=== PATIENT | female | born 1940 | race Caucasian/White ===

== ENCOUNTER 2016-10-25 13:50 | Inpatient (IN) | payer OTHER, MEDICARE ==
[2016-10-25] MEDS ORDERED: HYDROmorphONE/DILAUDID 1 MG/ML SYR IVP ONE ×2 (14:15→17:27)
--- NOTE | 2016-10-25 14:17 | EDPHY ---
H & P Source: Patient Exam Limitations: No limitations - Medical/Surgical History Hx Asthma: No Hx Chronic Respiratory Disease: No Hx Diabetes: No Hx Cardiac Disease: No Hx Renal Disease: No Hx Cirrhosis: No Hx Alcoholism: No - Family History Significant Family History: No pertinent family hx - Social History Alcohol Use: Sober Drug Use: None Time Seen by Provider: 10/25/16 14:10 HPI/ROS: CHIEF COMPLAINT: Right knee pain HISTORY OF PRESENT ILLNESS: The patient is a 76-year-old female who comes to the emergency department by ambulance complaining of right knee pain. She tripped and fell into a kneeling position onto her right knee. She had immediate pain and states that she cannot extend her knee. She had this knee replaced in July of this year and [place]. She denies other injuries. REVIEW OF SYSTEMS: Constitutional: denies: chills, fever, recent illness, recent injury EENTM: denies: blurred vision, double vision, nose congestion Respiratory: denies: cough, shortness of breath Cardiac: denies: chest pain, irregular heart rate, lightheadedness, palpitations Gastrointestinal/Abdominal: denies: abdominal pain, diarrhea, nausea, vomiting, blood streaked stools Genitourinary: denies: dysuria, frequency, hematuria, pain Musculoskeletal: See HPI Skin: denies: lesions, rash, jaundice, bruising Neurological: denies: headache, numbness, paresthesia, tingling, dizziness, weakness Hematologic/Lymphatic: denies: blood clots, easy bleeding, easy bruising Immunologic/allergic: denies: HIV/AIDS, transplant EXAM: GENERAL: Well-appearing, well-nourished and in no acute distress. HEAD: Atraumatic, normocephalic. EYES: Pupils equal round and reactive to light, extraocular movements intact, sclera anicteric, conjunctiva are normal. ENT: TMs normal, nares patent, oropharynx clear without exudates. Moist mucous membranes. NECK: Normal range of motion, supple without lymphadenopathy or JVD. LUNGS: Breath sounds clear to auscultation bilaterally and equal. No wheezes rales or rhonchi. HEART: Regular rate and rhythm without murmurs, rubs or gallops. ABDOMEN: Soft, nontender, normoactive bowel sounds. No guarding, no rebound. No masses appreciated. BACK: No CVA tenderness, no spinal tenderness, step-offs or deformities EXTREMITIES: Right knee pain and swelling, mild crepitus to palpation. We cannot extend knee due to pain. Normal pulses and sensation distally. NEUROLOGICAL: Cranial nerves II through XII grossly intact. Normal speech, normal sensation PSYCH: Normal mood, normal affect. SKIN: Warm, dry, normal turgor, no visible rashes or lesions. (Casey Reyna) Constitutional: Initial Vital Signs Temperature (C) 36.4 C 10/25/16 14:26 Heart Rate 72 10/25/16 14:26 Respiratory Rate 16 10/25/16 14:26 Blood Pressure 156/83 H 10/25/16 14:26 O2 Sat (%) 95 10/25/16 14:26 O2 Delivery Mode Nasal Cannula O2 (L/minute) 2 Allergies/Adverse Reactions: No Known Allergies Allergy (Unverified 10/25/16 14:21) Home Medications: Medication Instructions Recorded Aspirin EC [Aspirin EC 81 mg (*)] 81 mg PO DAILY 10/25/16 Atorvastatin Calcium [Lipitor 10 5 mg PO DAILY 10/25/16 mg (*)] Diclofenac Sodium [Voltaren 75 MG 75 mg PO BID 10/25/16 (*)] Estrogens,Conjugated [Premarin 1 lay VG MOTH@09 10/25/16 Vaginal (*)] Herbals/Supplements -Info Only 1 ea PO DAILY 10/25/16 Pregabalin [Lyrica 50mg (*)] 50 mg PO BID 10/25/16 traMADol [Ultram 50 mg (*)] 50 - 100 mg PO Q6 PRN 10/25/16 Medical Decision Making - Diagnostics Imaging Results: X-ray: Right knee x-ray was obtained. I viewed the images myself on the PACS system. My interpretation of the images is: Distal femur fracture. The radiologist interpretation is pending. (Casey Reyna) ED Course/Re-evaluation: 1600: Dr. So came and evaluated the patient. Stated the OR cannot take the patient until 8:00 p.m.. He recommended that I consult the hospitalist service. I discussed the case with hospitalist, Dr. Jordan, who came to the ED. (Phyllis Hernandez) 3:10 p.m. I discussed the case with Dr. Wes So who will come to evaluate the patient in the ER likely take her to the operating room. (Casey Reyna) Differential Diagnosis: Partial list of the Differential diagnosis considered include but were not limited to; femur fracture, patella fracture and although unlikely based on the history and physical exam, I also considered dislocation, vascular injury, nerve injury. (Casey Reyna) - Data Points Laboratory Results: Laboratory Results 10/25/16 13:55 10/25/16 13:55 Medications Given: Acetaminophen (Tylenol) 650 mg PO Q4HRS PRN PRN Reason: Pain, Mild/Fever, Can Take PO Stop: 04/23/17 16:38 Last Admin: 10/26/16 16:15 Dose: 650 mg Atorvastatin Calcium (Lipitor) 5 mg PO DAILY CY Stop: 04/24/17 08:59 Last Admin: 10/26/16 09:36 Dose: 5 mg Sodium Chloride (Ns) 1,000 mls @ 100 mls/hr IV CONT CY Stop: 04/23/17 16:44 Last Admin: 10/26/16 10:55 Dose: 1,000 mls Ketorolac Tromethamine (Toradol) 15 - 30 mg IVP Q6HRS PRN PRN Reason: Pain, Inflammatory Stop: 10/30/16 19:39 Last Admin: 10/25/16 22:34 Dose: 30 mg Lidocaine/Prilocaine (Emla Cream) 1 lay TP PRN PRN PRN Reason: IV START Stop: 04/24/17 11:19 Last Admin: 10/26/16 14:59 Dose: 1 lay Methocarbamol (Robaxin) 750 mg PO TID CY Stop: 04/24/17 15:59 Last Admin: 10/26/16 15:06 Dose: 750 mg Oxycodone HCl (Oxycodone Ir) 5 - 10 mg PO Q4HRS PRN PRN Reason: Pain, Severe Able to Take PO Stop: 11/04/16 19:39 Last Admin: 10/26/16 16:15 Dose: 5 mg Pregabalin (Lyrica) 50 mg PO BID CY Stop: 04/24/17 08:59 Last Admin: 10/26/16 09:36 Dose: 50 mg Rivaroxaban (Xarelto) 10 mg PO DAILY CY Stop: 04/24/17 08:59 Last Admin: 10/26/16 09:36 Dose: 10 mg Tramadol HCl (Ultram) 50 - 100 mg PO Q6 PRN PRN Reason: Pain, Moderate Able to Take PO Stop: 04/24/17 07:59 Last Admin: 10/26/16 09:36 Dose: 50 mg Discontinued Medications Bacitracin (Bacitracin Syringe) Confirm Administered Dose 50,000 units IRR .STK- MED ONE Stop: 10/25/16 16:47 Last Admin: 10/25/16 22:18 Dose: Not Given Bupivacaine HCl/Epinephrine Bitart (Bupivacaine/Epi) Confirm Administered Dose 30 ml .ROUTE .STK-MED ONE Stop: 10/25/16 16:46 Last Admin: 10/25/16 22:18 Dose: Not Given Fentanyl (Sublimaze) 50 - 100 mcg IVP Q5M PRN PRN Reason: PACU, Immediate Severe Pain Stop: 10/25/16 20:37 Last Admin: 10/25/16 21:29 Dose: 25 mcg Hydromorphone HCl (Dilaudid) 1 mg IVP EDNOW ONE Stop: 10/25/16 14:16 Last Admin: 10/25/16 14:43 Dose: 1 mg Hydromorphone HCl (Dilaudid) 0.5 mg IVP ONCE ONE Stop: 10/25/16 17:28 Last Admin: 10/25/16 17:38 Dose: 0.5 mg Cefazolin Sodium/Dextrose (Ancef 2 Gm (Premix)) 100 mls @ 200 mls/hr IV ONCALL ONE PRN Reason: Protocol Stop: 10/25/16 17:19 Last Admin: 10/25/16 22:19 Dose: Not Given Lactated Ringer's (Lr) 1,000 mls @ 0 mls/hr IV ONCE ONE PRN Reason: As Directed Stop: 10/25/16 16:56 Last Admin: 10/25/16 17:05 Dose: 1,000 mls Cefazolin Sodium/Dextrose (Ancef 2 Gm (Premix)) 100 mls @ 200 mls/hr IV Q8H CY PRN Reason: Protocol Stop: 10/26/16 10:29 Last Admin: 10/26/16 09:36 Dose: 100 mls Polymyxin B Sulfate (Polymyxin B Syringe) Confirm Administered Dose 500,000 unit IRR .STK-MED ONE Stop: 10/25/16 16:47 Last Admin: 10/25/16 22:18 Dose: Not Given Departure - Departure Disposition: To OP Cath/Surgery Clinical Impression: Femur fracture, right Qualifiers: Encounter type: initial encounter Femur location: distal Fracture type: closed Fracture morphology: other fracture Qualified Code(s): S72.491A - Other fracture of lower end of right femur, initial encounter for closed fracture Condition: Fair
[2016-10-25 14:23] LABS: % IMMATURE GRANULYOCYTES 0.3 % (0.0-1.1); ABSOLUTE IMMATURE GRANULOCYTES 0.03 10^3/uL (0.00-0.10); ADD DIFF? NO; ADD MORPH? NO; ADD SCAN? NO; ATYPICAL LYMPHOCYTE FLAG 10 (0-99); FRAGMENT RBC FLAG 0 (0-99); HEMATOCRIT 37.5 % (38.0-47.0); HEMOGLOBIN 12.1 g/dL (12.6-16.3); LEFT SHIFT FLG 0 (0-99); LIPEMIA HEMOLYSIS FLAG 80 (0-99); MEAN CELL HEMOGLOBIN 30.8 pg (27.9-34.1); MEAN CELL HEMOGLOBIN CONCENTR. 32.3 g/dL (32.4-36.7); MEAN CELL VOLUME 95.4 fL (81.5-99.8); MEAN PLATELET VOLUME 10.3 fL (8.7-11.7); PLATELET CLUMPS FLAG 0 (0-99); PLATELET COUNT 270 10^3/uL (150-400); RED BLOOD CELL COUNT 3.93 10^6/uL (4.18-5.33); RED CELL DISTRIBUTION WIDTH 14.3 % (11.5-15.2)
[2016-10-25 14:27] LABS: ANION GAP 11 mEq/L (8-16); CARBON DIOXIDE 23 mEq/l (22-31); CHLORIDE 107 mEq/L (97-110); CREATININE 0.7 mg/dL (0.6-1.0); GLOMERULAR FILTRATION RATE > 60; GLUCOSE 78 mg/dL (70-100); POTASSIUM 4.3 mEq/L (3.5-5.2); SODIUM 141 mEq/L (134-144)
[2016-10-25 14:39] LABS: APTT 27.9 SEC (23.0-38.0); PROTIME(PATIENT) 13.1 SEC (12.0-15.0)
[2016-10-25] MEDS ORDERED: ONDANSETRON DISINTEGRATING 4 MG TAB PO PRN (16:39)
[2016-10-25] MEDS ORDERED: HYDROmorphONE/DILAUDID 1 MG/ML SYR IVP PRN (16:39)
[2016-10-25] MEDS ORDERED: ONDANSETRON 4 MG/2 ML VIAL IVP PRN (16:39)
[2016-10-25] MEDS ORDERED: LR 1,000 ML IV ONE (16:55)
--- NOTE | 2016-10-25 16:59 | GCON ---
[f rep st] CONSULTATION ORTHOPEDIC CONSULTATION DATE OF CONSULTATION: 10/25/2016 REASON FOR CONSULTATION: Periprosthetic femur fracture, right. HISTORY OF PRESENT ILLNESS: Dora is a 76-year-old female who had a right total knee arthroplasty done in [place] in July of this year. She tripped and fell earlier this afternoon and landed directly on her right knee. Was brought to the emergency room. X-rays were obtained which showed a periprosthetic femur fracture. I was consulted and saw her in the emergency department. PRIOR MEDICAL HISTORY: She has COPD and is on supplemental oxygen at night 2 L. she has a home both here in [place] as well as up in [place], and she does require more oxygen in [place]. She does have sleep apnea as well, high cholesterol , and is also having some nerve pain related to her recent knee surgery. Medications at home include Lyrica, a cholesterol medicine that she does not recall the name of. She also takes Augmentin for frequent UTIs. SOCIAL HISTORY: Does not smoke. Reports occasional alcohol. She lives with her spouse in [place] who is a quadriplegic after an accident. REVIEW OF SYSTEMS: No shortness of breath or chest pain. Otherwise, review of systems is unremarkable. PHYSICAL EXAMINATION: Vital signs in the emergency department: Her temperature is 36.4, heart rate 72, respiratory rate 16, blood pressure is 156/83, oxygen saturation is 95% on 2 L. She is alert and oriented x3. HEENT: Normocephalic, atraumatic. Extraocular muscles intact. Neck is supple. There is no lymphadenopathy. No JVD. Chest is clear to auscultation. CARDIOVASCULAR: Regular rate and rhythm. The abdomen is soft, nontender, nondistended. There is no hepatosplenomegaly. Extremity exam focusing on the right lower extremity, there is obvious deformity at the distal femur. Skin is intact. Compartments are soft. She has 2+ dorsalis pedis and posterior tibial pulses. She has 4/5 dorsiflexion and plantar flexion strength. X-RAYS: Four views of the distal femur are reviewed. Prosthesis appears to be well cemented with no signs of loosening. She has a periprosthetic fracture several centimeters, distal third of the femoral shaft. There is a total hip arthroplasty stem present above the fracture site. ASSESSMENT: Periprosthetic femur fracture without evidence of prosthetic loosening. PLAN: I recommend proceeding with an open reduction and internal fixation of her distal femur. We will do this tonight hopefully within the next hour or two. N.p.o. status. She has last had solid food at 7:30. She had some Tylenol with sips of water at noon. She has had a DVT following knee replacement surgery ; however, it does not sound like she was ever treated for that DVT. She is only currently on an 81 mg aspirin. I think we need to treat her aggressively in the postoperative period with either Lovenox or oral Xarelto. She understands this. Risks and benefits of the surgery included hardware failure, malunion, need for additional surgery, blood clots, and infection, were all discussed. She understands these risks and wished to proceed. She will be partial weightbearing in the postoperative period. /[id number]/MODL MTDD
--- NOTE | 2016-10-25 17:09 | GHP ---
[f rep st] HISTORY AND PHYSICAL DATE OF ADMISSION: 10/25/2016 CHIEF COMPLAINT: Knee pain. HISTORY OF PRESENT ILLNESS: A 76-year-old female with a history of arthritis, status post recent ri ght knee arthroplasty, who caught her toe on a small curb today and fell directly on her knee. Had immediate pain and inability to ambulate. Was brought to the emergency department for evaluation. The patient reports extremely severe pain in the ED even without any motion, either passive or activ e of her lower extremity. Denies any shortness of breath. Denies any vision changes, dizziness, na usea, vomiting, abdominal discomfort. She does note she has had minimal symmetric lower extremity e liban recently that she attributes to her salt intake and activity level. The patient has recently b juve diagnosed with pulmonary fibrosis which she says is very early in her diagnosis and has been jennifer te stable on oxygen supplementation up at elevation in [place] where she lives. The patient does not r ecall falling and hitting her head. She denies active headache, vision changes at this time. In fa ct, denies any pain of the scalp. Was unaware that she has an injury there. PAST MEDICAL HISTORY: 1. Pulmonary fibrosis. 2. Obstructive sleep apnea, using nocturnal oxygen supplementation only. 3. Osteoarthritis with left knee replacement, right hip replacement, and recent right knee replacem ent. 4. History of perioperative hypotension. SOCIAL HISTORY: Patient lives in [place]. Denies tobacco. Socially drinks alcohol. Denies illicit d rugs or marijuana. ADVANCED DIRECTIVES: Patient is full cor, full tube. Her daughter would be her medical decision silvio hewitt. FAMILY HISTORY: Significant for pulmonary fibrosis, [facility] REVIEW OF SYSTEMS: A 10-point review of systems is negative with the exception of that reported in the HPI. PHYSICAL EXAMINATION: VITAL SIGNS: Blood pressure 130/98, heart rate 58, respiratory rate 16, 98% on 2 L, 36.6. GENERAL: This is a very pleasant-appearing, elderly female in no acute distress. HE ENT: Notable for moist mucous membranes. Eye exam is negative for any icterus. The patient has a s mall excoriation above her left eyebrow. CARDIAC: Patient is bradycardic, but regular. Quiet syst olic murmur is heard best at the left sternal border. PULMONARY: Patient is clear to auscultation bilaterally with good air movement. GASTROINTESTINAL: Positive bowel sounds. Abdomen is soft and nontender in all 4 quadrants. MUSCULOSKELETAL: Patient has trace symmetric bilateral lower extremi ty edema. There is external rotation of the right lower extremity with swelling at the knee. There are good palpable pedal pulses bilaterally. I did not move her right lower extremity for obvious r easons. SKIN: Negative for any rashes. PSYCHIATRIC: She is pleasant and cooperative. NEUROLOGIC : She is alert and oriented x3. DATA: White count 8.9, hematocrit 37.5, platelets 270. INR is 1.00. Creatinine 0.7. An x-ray of the knee shows a seriously displaced fracture of the distal femur above her recent arthroplasty. ASSESSMENT AND PLAN: This is a 76-year-old female presenting status post fall with femur fracture. 1. Acute distal femur fracture. Patient will be made n.p.o. and will be taken for operative repair imminently. The patient has an unusual history of a suspected postoperative deep venous thrombosis with her last knee arthroplasty, although no deep venous thrombosis was ever seen on imaging. I mchugh ve discussed with this with Dr. So and we will start prophylaxis as soon as safe postoperative ly. The patient will be treated with IV fluids while n.p.o. as well as IV pain medications. 2. Pulmonary fibrosis. The patient is quite stable currently. Will continue oxygen supplementatio n as necessary. 3. Obstructive sleep apnea. We will simply supplement the patient with nocturnal oxygen as she sanchez s at home. 4. Perioperative hypotension. This will be mentioned to the anesthesiologist as well. She has rec eived fluid resuscitation in the emergency department. Will monitor her blood pressures closely pos toperative. 5. Prophylaxis is being held. 6. Preop diet: N.p.o. 7. Disposition: Expecting greater than 2 midnights as patient requires surgical fixation of her kn ee as well as postop recovery prior to disposition. I have discussed the case with Dr. So and the emergency room physician. Patient will be triaged to the medical-surgical floor in anticipatio n of the OR. 8. Acute scalp laceration. It is minimal. There is some hematoma underneath. The patient does no t have symptoms. Will discuss with the emergency room whether it necessitates CT imaging based on t rauma protocol. /[id number]/MODL
[2016-10-25] MEDS ORDERED: HYDROmorphONE/DILAUDID 1 MG/ML SYR ONE (17:33)
--- NOTE | 2016-10-25 17:34 | PDANEPAE ---
ANE Past Medical History - Pulmonary History Hx COPD: Yes Hx Oxygen in Use at Home: No Hx Sleep Apnea: No Pulmonary History Comment: pulmonary fibrosis - Endocrine History Hx Diabetes: No ANE Patient History - Allergies Allergies/Adverse Reactions: No Known Allergies Allergy (Unverified 10/25/16 14:21) - Home Medications Home Medications: Aspirin EC [Aspirin EC 81 mg (*)] 81 mg PO DAILY 10/25/16 [Last Taken 10/25/16] Atorvastatin Calcium [Lipitor 10 mg (*)] 5 mg PO DAILY 10/25/16 [Last Taken ] Diclofenac Sodium [Voltaren 75 MG (*)] 75 mg PO BID 10/25/16 [Last Taken Unknown ] Estrogens,Conjugated [Premarin Vaginal (*)] 1 lay VG MOTH@10/25/16 [Last Taken Unknown] Herbals/Supplements -Info Only 1 ea PO DAILY 10/25/16 [Last Taken Unknown] Pregabalin [Lyrica 50mg (*)] 50 mg PO BID 10/25/16 [Last Taken 10/25/16 09:00] traMADol [Ultram 50 mg (*)] 50 - 100 mg PO Q6 PRN 10/25/16 [Last Taken Unknown] - NPO status NPO Since - Liquids (Date): 10/25/16 NPO Since - Liquids (Time): 13:00 NPO Since - Solids (Date): 10/25/16 NPO Since - Solids (Time): 07:30 - Smoking Hx Smoking Status: Never smoked - Alcohol Use Alcohol Use: Sober ANE Labs/Vital Signs - Labs Result Diagrams: 10/25/16 13:55 10/25/16 13:55 - Vital Signs Blood Pressure: 132/64 Heart Rate: 54 Respiratory Rate: 16 O2 Sat (%): 98 Height: 175.26 cm Weight: 74.843 kg ANE Physical Exam - Airway Mallampati Score: Class 2 - ASA Status ASA Status: II ANE Anesthesia Plan Anesthesia Plan: GA w LMA
[2016-10-25] MEDS ORDERED: PROPOFOL 200 MG/20 ML VIAL ONE (17:37)
[2016-10-25] MEDS ORDERED: fentaNYL 100 MCG/2 ML INJ ONE ×2 (17:37→19:58)
[2016-10-25] MEDS ORDERED: MIDAZOLAM 2 MG/2 ML VIAL ONE (17:37)
[2016-10-25] MEDS: ceFAZolin 2 GM/DEXTROSE 100 ML IV ONE ×2 (17:41→22:19)
[2016-10-25] MEDS ORDERED: ONDANSETRON 4 MG/2 ML VIAL ONE (18:03)
[2016-10-25] MEDS ORDERED: METOCLOPRAMIDE 10 MG/2 ML VIAL ONE (18:03)
[2016-10-25] MEDS: BACITRACIN 50,000 UNITS/10 ML SYR IRR ONE ×2 (18:10→22:18)
[2016-10-25] MEDS: POLYMYXIN B SULFATE 500,000 UNIT/10 ML SYR IRR ONE ×2 (18:10→22:18)
[2016-10-25] MEDS: BUPIVACAINE/EPI 0.5% 30 ML SDV ONE ×2 (19:00→22:18)
[2016-10-25] MEDS ORDERED: LR 500 ML IV PRN (19:37)
[2016-10-25] MEDS ORDERED: MEPERIDINE 25 MG/ML SYR IVP PRN (19:37)
[2016-10-25] MEDS ORDERED: NALOXONE HCL 0.4 MG/ML INJ IVP PRN (19:37)
[2016-10-25] MEDS ORDERED: PROMETHAZINE HCL 25 MG/ML INJ IVP PRN (19:37)
--- NOTE | 2016-10-25 19:38 | POSTANESTH ---
Post Anesthetic Evaluation Cardiovascular Status: Normal, Stable Respiratory Status: Normal, Stable Level of Consciousness/Mental Status: Can Participate in Eval Pain Control: Adequate, Prn Tx Ordered Nausea/Vomiting Control: Adequate, Prn Tx Ordered Complications Possibly Related to Anesthesia: None Noted
--- NOTE | 2016-10-25 19:40 | POSTOPPROG ---
Post Op Note Date of Operation: 10/25/16 Surgeon: Wes So Linoleum Floor Installer: rosa Anesthesiologist: bernie Anesthesia: GET(General Endotracheal) Pre-op Diagnosis: Periprosthetic distal femor fx rt Post-op Diagnosis: same Procedure: ORIF distal femur fx rt Findings: comminuted displaced distal femur fx Inf/Abcess present in the surg proc area at time of surgery?: No EBL: 100-500 Complications: none
[2016-10-25] MEDS: fentaNYL 100 MCG/2 ML INJ IVP PRN ×2 (20:00→21:29)
[2016-10-25] MEDS: ACETAMINOPHEN 325 MG TAB PO PRN (22:34)
[2016-10-25] MEDS: KETOROLAC 30 MG/1 ML SDV IVP PRN (22:34)
[2016-10-25] MEDS: oxyCODONE IR 5 MG TAB PO PRN (22:35)
[2016-10-25] MEDS: NS 1,000 ML IV SCH (22:38)
[2016-10-26] MEDS: ceFAZolin 2 GM/DEXTROSE 100 ML IV SCH ×2 (01:31→09:36)
--- NOTE | 2016-10-26 04:29 | GOP ---
[f rep st] OPERATIVE REPORT DATE OF OPERATION: 10/25/2016 SURGEON: Wes So MD WORK STATION SUPPORT SPECIALIST: Wiley Brandt, COMMERCIAL DIRECTOR, [facility]. ANESTHESIA: General. ANESTHESIOLOGIST: Dr. Valerio PREOPERATIVE DIAGNOSIS: Right periprosthetic distal femur fracture. POSTOPERATIVE DIAGNOSIS: Right periprosthetic distal femur fracture. PROCEDURE PERFORMED: Open reduction, internal fixation, periprosthetic distal femur fracture, right . FINDINGS: ESTIMATED BLOOD LOSS: 200 mL. INDICATIONS: The patient is a 76-year-old female, who fell earlier today and sustained a periprosth etic distal femur fracture. She was brought to the emergency room. I saw her in the emergency room and brought her up to the operating room for definitive fixation of her fracture. DESCRIPTION OF PROCEDURE: After appropriate informed consent was obtained, the patient was taken th e operating room, placed supine on the operating table. Time-out was performed. Patient was identi fied. Correct site was identified, matched with the radiographs that were in the room. She receive d 2 g of Ancef preoperatively. Following induction of general endotracheal tube anesthesia by Dr. John perez, the right lower extremity was prepped and draped in the usual sterile fashion. I made a bo dard lateral incision. Bleeding was controlled with electrocautery. Incised the ITB and carefully elevated off the vastus lateralis musculature. The fracture was comminuted. Poor bone quality was noted. The prosthesis was intact on the distal femur with no fracture extension into the prosthesis . We carefully reduced the fracture, held it in place with clamps. I was then able to get the plat e attached to the femoral condyle piece with a compression screw, hold the reduction in place and ge t a compression screw on the shaft. Position was confirmed with AP and lateral fluoroscopic images. I then put 2 more compression screws, 1 on the shaft, 1 on the condyle, followed by a series of lo cking screws. Final imaging was obtained which showed satisfactory reduction of the fracture. Hard willett was in place. The wound was irrigated. Deep layers were closed with 0 Vicryl, superficial lay er was closed with 2-0 Vicryl, skin was closed with carlos. I instilled 30 mL 0.5% Marcaine with e pinephrine around the incision. Sterile dressing was applied. Knee immobilizer was applied. Adenike nt was awakened from anesthesia, taken to the recovery room in satisfactory condition. There were n o immediate intraoperative complications. Андрей Brandt's assistance was required throughout the ent zahra case. IMPLANTS USED: Synthes distal femoral locking plate 8 hole. COMPLICATIONS: None. DRAINS: None. /[id number]/MODL
[2016-10-26 05:12] LABS: HEMATOCRIT 33.3 % (38.0-47.0); HEMOGLOBIN 10.4 g/dL (12.6-16.3)
[2016-10-26] MEDS: ACETAMINOPHEN 325 MG TAB PO PRN ×3 (05:18→21:21)
[2016-10-26] MEDS: oxyCODONE IR 5 MG TAB PO PRN ×3 (05:18→21:22)
[2016-10-26] MEDS ORDERED: traMADol 50 MG TAB PO PRN (08:00)
[2016-10-26] MEDS ORDERED: Herbals/Supplements -Info Only PO SCH (09:00)
--- NOTE | 2016-10-26 09:13 | HOSPPROG ---
Hospitalist Progress Note Assessment/Plan: Patient is a 76-year-old female who is status post a right knee arthroplasty. She caught her toe on a curb and fell directly on her knee and had immediate pain. It was noted that she had an acute distal femur fracture. Today is my 1st encounter with the patient. Chart reviewed. Reviewed her care with Dr So. * right periprosthetic distal femur fracture Status post ORIF/POD #1 * pulmonary fibrosis * anemia Expected blood loss recheck labs in a.m. * obstructive sleep apnea * acute scalp laceration * hypotension Will give a fluid bolus *DVT prophylaxis: Xarelto *Plan: Patient is on Xarelto and Toradol, will monitor hemoglobin, hematocrit as well as her kidney function closely. She is also hypotensive this morning will give her a fluid bolus. Will initiate her on Robaxin. She is having significant spasms in her leg preventing her from getting out of bed. The patient has requested for the Triana catheter to remain in place due to decreased mobility and pain. This will need to be removed in the next day or so. On discharge would like to go home with her daughter who lives in [place] looking at a SNF there for rehab and then could to tx to her daughter's home. Subjective: Dora has no c/o pain while in bed. Objective: Vital Signs Temp Pulse Resp BP Pulse Ox 37.0 C 71 14 98/45 L 98 10/26/16 07:46 10/26/16 07:46 10/26/16 07:46 10/26/16 07:46 10/26/16 07:46 Laboratory Results 10/26/16 04:28 10/25/16 10/26/16 10/27/16 05:59 05:59 05:59 Intake Total 2430 Output Total 1250 Balance 1180 PT 13.1 SEC (12.0-15.0) 10/25/16 13:55 INR 1.00 (0.83-1.16) 10/25/16 13:55 - Physical Exam Constitutional: appears nourished, not in pain Eyes: PERRL Ears, Nose, Mouth, Throat: hearing normal Cardiovascular: regular rate and rhythym, edema (right ankle) Respiratory: no respiratory distress Gastrointestinal: normoactive bowel sounds Musculoskeletal: other (right leg in leg splint and miriam wrap) Neurologic: AAOx3 Psychiatric: interacting appropriately, not anxious ICD10 Worksheet Patient Problems: Problems Problem Status Onset Femur fracture, right Acute
[2016-10-26] MEDS: PREGABALIN 50 MG CAP PO SCH ×2 (09:36→21:22)
[2016-10-26] MEDS: RIVAROXABAN 10 MG TAB PO SCH (09:36)
[2016-10-26] MEDS: ATORVASTATIN CALCIUM 10 MG TAB PO SCH (09:36)
[2016-10-26] MEDS: NS 1,000 ML IV SCH ×2 (10:55→21:28)
--- NOTE | 2016-10-26 11:16 | SOAPPROG ---
SOAP Progress Note Assessment/Plan: Assessment: POD#1 ORIF periprosthetic fx femur Plan: 10/26/16 11:15 TTWB x 3 weeks Xarelto dvt proph PT/OT snf vs home with family Subjective: Doing better Today Family at bedside Objective: Dressing c/d/i Compartments soft 5/5 ankle df/pf 2+ Dp/tp pulses Vital Signs Temp Pulse Resp BP Pulse Ox 37.0 C 71 14 98/45 L 98 10/26/16 07:46 10/26/16 07:46 10/26/16 07:46 10/26/16 07:46 10/26/16 07:46 Laboratory Results 10/26/16 04:28 10/25/16 10/26/16 10/27/16 05:59 05:59 05:59 Intake Total 2430 400 Output Total 1250 Balance 1180 400 PT 13.1 SEC (12.0-15.0) 10/25/16 13:55 INR 1.00 (0.83-1.16) 10/25/16 13:55 ICD10 Worksheet Patient Problems: Problems Problem Status Onset Femur fracture, right Acute
[2016-10-26] MEDS ORDERED: LIDOCAINE/PRILOCAINE 1 EACH CRTUBE TP PRN (11:20)
[2016-10-26] MEDS: METHOCARBAMOL 750 MG TAB PO SCH ×2 (15:06→21:23)
[2016-10-26] MEDS: KETOROLAC 30 MG/1 ML SDV IVP PRN (21:23)
[2016-10-27] MEDS: ACETAMINOPHEN 325 MG TAB PO PRN ×2 (04:45→16:08)
[2016-10-27] MEDS: oxyCODONE IR 5 MG TAB PO PRN ×2 (04:46→16:09)
[2016-10-27 05:19] LABS: % IMMATURE GRANULYOCYTES 0.4 % (0.0-1.1); ABSOLUTE IMMATURE GRANULOCYTES 0.04 10^3/uL (0.00-0.10); ADD DIFF? NO; ADD MORPH? NO; ADD SCAN? NO; ATYPICAL LYMPHOCYTE FLAG 0 (0-99); FRAGMENT RBC FLAG 0 (0-99); HEMATOCRIT 30.1 % (38.0-47.0); HEMOGLOBIN 9.3 g/dL (12.6-16.3); LEFT SHIFT FLG 50 (0-99); LIPEMIA HEMOLYSIS FLAG 80 (0-99); MEAN CELL HEMOGLOBIN 30.4 pg (27.9-34.1); MEAN CELL HEMOGLOBIN CONCENTR. 30.9 g/dL (32.4-36.7); MEAN CELL VOLUME 98.4 fL (81.5-99.8); MEAN PLATELET VOLUME 10.2 fL (8.7-11.7); PLATELET CLUMPS FLAG 10 (0-99); PLATELET COUNT 170 10^3/uL (150-400); RED BLOOD CELL COUNT 3.06 10^6/uL (4.18-5.33); RED CELL DISTRIBUTION WIDTH 14.3 % (11.5-15.2)
[2016-10-27 05:27] LABS: ANION GAP 6 mEq/L (8-16); CALCIUM 7.5 mg/dL (8.5-10.4); CARBON DIOXIDE 24 mEq/l (22-31); CHLORIDE 108 mEq/L (97-110); CREATININE 0.8 mg/dL (0.6-1.0); GLOMERULAR FILTRATION RATE > 60; GLUCOSE 92 mg/dL (70-100); POTASSIUM 4.3 mEq/L (3.5-5.2); SODIUM 138 mEq/L (134-144)
[2016-10-27] MEDS: KETOROLAC 30 MG/1 ML SDV IVP PRN (08:33)
[2016-10-27] MEDS: PREGABALIN 50 MG CAP PO SCH ×2 (08:33→22:33)
[2016-10-27] MEDS: RIVAROXABAN 10 MG TAB PO SCH (08:34)
[2016-10-27] MEDS: ATORVASTATIN CALCIUM 10 MG TAB PO SCH (08:34)
[2016-10-27] MEDS: METHOCARBAMOL 750 MG TAB PO SCH ×3 (08:34→22:33)
--- NOTE | 2016-10-27 11:52 | HOSPPROG ---
Hospitalist Progress Note Assessment/Plan: Patient is a 76-year-old female who is status post a right knee arthroplasty. She caught her toe on a curb and fell directly on her knee and had immediate pain. It was noted that she had an acute distal femur fracture. Today is my 1st encounter with the patient. Chart reviewed. Reviewed her care with CM. * right periprosthetic distal femur fracture Status post ORIF/POD #2 pain and spasm better * pulmonary fibrosis * anemia Expected blood loss stable, no signs of bleeding will follow * obstructive sleep apnea * acute scalp laceration * hypotension stable, asymptomatic *DVT prophylaxis: Xarelto *Plan: Patient is on Xarelto and Toradol, will monitor hemoglobin, hematocrit as well as her kidney function closely. DC Triana catheter. On discharge would like to go home with her daughter who lives in [place], [place]/ CM looking at a SNF there for rehab and then could to tx to her daughter's home. SNF in am in [place] if doing well. Subjective: Feeling much better today. Less pain. Moving better. Objective: Vital Signs Temp Pulse Resp BP Pulse Ox 36.6 C 66 14 95/41 L 95 10/27/16 07:14 10/27/16 07:14 10/27/16 07:14 10/27/16 07:14 10/27/16 07:14 Laboratory Results 10/27/16 04:37 10/27/16 04:37 10/26/16 10/27/16 10/28/16 05:59 05:59 05:59 Intake Total 2430 4000 Output Total 1250 1400 Balance 1180 2600 PT 13.1 SEC (12.0-15.0) 10/25/16 13:55 INR 1.00 (0.83-1.16) 10/25/16 13:55 - Physical Exam Constitutional: no apparent distress, appears nourished, not in pain Eyes: PERRL, anicteric sclera, EOMI Ears, Nose, Mouth, Throat: moist mucous membranes, hearing normal, ears appear normal Cardiovascular: regular rate and rhythym, No JVD, No edema Respiratory: no respiratory distress, no rales or rhonchi, reduced air movement Gastrointestinal: normoactive bowel sounds, No tenderness, No ascites Skin: warm, normal color, No erythema Musculoskeletal: no joint effusions, pain with ROM, generalized weakness Neurologic: AAOx3 Psychiatric: interacting appropriately, not anxious, not encephalopathic, thought process linear ICD10 Worksheet Patient Problems: Problems Problem Status Onset Femur fracture, right Acute
--- NOTE | 2016-10-27 15:06 | SOAPPROG ---
SOAP Progress Note Assessment/Plan: Assessment: POD#1 ORIF periprosthetic fx femur Plan: 10/26/16 11:15 TTWB x 3 weeks Xarelto dvt proph PT/OT snf vs home with family 10/27/16 15:04 TTWB, knee immob x 3 weeks Xarelto x 21 days May start ROM to knee now DC to [facility] Monday Subjective: Feeling good Today Objective: Dressing c/d/i calf soft able to do SLR 5/5 df/pf 1+ dp/tp pulses Vital Signs Temp Pulse Resp BP Pulse Ox 36.7 C 80 14 104/57 L 97 10/27/16 11:59 10/27/16 11:59 10/27/16 11:59 10/27/16 11:59 10/27/16 11:59 Laboratory Results 10/27/16 04:37 10/27/16 04:37 10/26/16 10/27/16 10/28/16 05:59 05:59 05:59 Intake Total 2430 4000 Output Total 1250 1400 650 Balance 1180 2600 -650 PT 13.1 SEC (12.0-15.0) 10/25/16 13:55 INR 1.00 (0.83-1.16) 10/25/16 13:55 ICD10 Worksheet Patient Problems: Problems Problem Status Onset Femur fracture, right Acute
[2016-10-27] MEDS: FERROUS SULFATE 140 MG TAB.ER PO SCH (16:09)
--- NOTE | 2016-10-28 06:24 | PDIAF ---
- Diagnosis Code Status: Full Code - Medication Management Discharge Medications: Medications to Continue on Transfer Aspirin EC [Aspirin EC 81 mg (*)] 81 mg PO DAILY 10/25/16 [Last Taken 10/25/16] Atorvastatin Calcium [Lipitor 10 mg (*)] 5 mg PO DAILY 10/25/16 [Last Taken ] Diclofenac Sodium [Voltaren 75 MG (*)] 75 mg PO BID 10/25/16 [Last Taken Unknown ] Estrogens,Conjugated [Premarin Vaginal (*)] 1 lay VG MOTH@10/25/16 [Last Taken Unknown] Herbals/Supplements -Info Only 1 ea PO DAILY 10/25/16 [Last Taken Unknown] Pregabalin [Lyrica 50mg (*)] 50 mg PO BID 10/25/16 [Last Taken 10/25/16 09:00] traMADol [Ultram 50 mg (*)] 50 - 100 mg PO Q6 PRN 10/25/16 [Last Taken Unknown] Long-Term Antibiotics: no Discharge Medications: Refer to the Discharge Home Medication list for PRN reason. PICC Care - Routine: N/A - Orders Services needed: Physical Therapy, Occupational Therapy Home Care Face to Face: 10/27/16 Diet Recommendation: no restrictions on diet Diet Texture: Regular Texture Diet Triana: Not applicable Wound Care Instructions: keep incision covered x 7 days Date to Remove Sutures/Ivan: 11/15/16 Activity/Weight Bearing Restrictions: <50% x 3 weeks until f/u xray - Follow Up Care Current Providers and Referrals: Patient,NotPresent [Unknown] - As per Instructions Wes So MD [Medical Doctor] -
[2016-10-28] MEDS: oxyCODONE IR 5 MG TAB PO PRN ×2 (07:42→11:39)
[2016-10-28] MEDS: ATORVASTATIN CALCIUM 10 MG TAB PO SCH (07:43)
[2016-10-28] MEDS: PREGABALIN 50 MG CAP PO SCH (07:44)
[2016-10-28] MEDS: METHOCARBAMOL 750 MG TAB PO SCH (07:44)
[2016-10-28] MEDS: RIVAROXABAN 10 MG TAB PO SCH (07:44)
[2016-10-28] MEDS: FERROUS SULFATE 140 MG TAB.ER PO SCH (07:44)
[2016-10-28 07:59] VITALS: BP 109/48; PULSE 90; RESP 16; TEMP 98.6; O2SAT 93
--- NOTE | 2016-10-28 10:24 | PDIAF ---
- Diagnosis Diagnosis: femur fx Code Status: Full Code - Medication Management Discharge Medications: Medications to Continue on Transfer Aspirin EC [Aspirin EC 81 mg (*)] 81 mg PO DAILY 10/25/16 [Last Taken 10/25/16] Atorvastatin Calcium [Lipitor 10 mg (*)] 5 mg PO DAILY 10/25/16 [Last Taken ] Diclofenac Sodium [Voltaren 75 MG (*)] 75 mg PO BID 10/25/16 [Last Taken Unknown ] Estrogens,Conjugated [Premarin Vaginal (*)] 1 lay VG MOTH@09 10/25/16 [Last Taken Unknown] Herbals/Supplements -Info Only 1 ea PO DAILY 10/25/16 [Last Taken Unknown] Pregabalin [Lyrica 50mg (*)] 50 mg PO BID 10/25/16 [Last Taken 10/25/16 09:00] traMADol [Ultram 50 mg (*)] 50 - 100 mg PO Q6 PRN 10/25/16 [Last Taken Unknown] Acetaminophen [Tylenol 325mg (*)] 650 mg PO Q4HRS PRN #0 tab 10/28/16 [Last Taken Unknown] Ferrous Sulfate [Slow Fe 140 MG (*)] 140 mg PO DAILY tab.er 10/28/16 [Last Taken Unknown] Methocarbamol [Robaxin 750 mg (*)] 750 mg PO TID tab 10/28/16 [Last Taken Unknown] Rivaroxaban [Xarelto 10mg (*)] 10 mg PO DAILY tab 10/28/16 [Last Taken Unknown] oxyCODONE IR [Oxycodone Ir (*)] 5 - 10 mg PO Q4HRS PRN #0 tab 10/28/16 [Last Taken Unknown] Commodities Trader Antibiotics: no Discharge Medications: Refer to the Discharge Home Medication list for PRN reason. PICC Care - Routine: N/A - Orders Services needed: Registered Nurse, Physical Therapy, Occupational Therapy Diet Recommendation: no restrictions on diet Diet Texture: Regular Texture Diet Triana: Not applicable Wound Care Instructions: keep incision covered x 7 days Date to Remove Sutures/Ivan: 11/15/16 Activity/Weight Bearing Restrictions: <50% x 3 weeks until f/u xray - Labs/Radiology BMP Date: 10/31/16 CBC Date: 10/31/16 - Follow Up Care Current Providers and Referrals: Wes So MD [Medical Doctor] - Patient,NotPresent [Unknown] - As per Instructions
--- NOTE | 2016-10-28 16:43 | GDS ---
[f rep st] DISCHARGE SUMMARY DISCHARGE DIAGNOSES: 1. Right distal femur fracture. 2. History of pulmonary fibrosis. 3. Anemia. 4. Acute scalp laceration. 5. Hypotension. CONSULTATIONS: Dr. So of Orthopedics. PHYSICAL EXAMINATION: GENERAL: The patient is alert. VITAL SIGNS: Afebrile at 37, pulse is 90, r espiratory rate 16, blood pressure is 109/48. She is saturating 93% on 2 L. I have seen and evaluated the patient on the day of discharge. HOSPITAL COURSE: 1. Patient is a 76-year-old female, who suffered a mechanical fall and presented to the emergency r oom with complaints of pain. She was evaluated and diagnosed with a right distal femur fracture. D uring this hospitalization, she received surgical intervention, per Dr. So. She is recovering well in the postoperative setting. Requires continued physical therapy, as well as occupational th erapy. 2. History of pulmonary fibrosis. This is stable. 3. Anemia. This is stable at the time of disposition and is likely multifactorial. Her hemoglobin and hematocrit will be evaluated on 10/31/2016. She has also been initiated on supplemental iron r eplacement. 4. Hypotension. This is within normal limits and asymptomatic. DISPOSITION: Patient will be discharged to shelter facility in [place], [place], which is close to her daughter. She will be discharged on Xarelto for DVT prophylaxis. PENDING STUDIES: There are no pending studies. DISCHARGE MEDICATIONS: Please refer to EMR form. New medications include Xarelto, oxycodone IR, Ro baxin, iron. I have not discontinued the patient's previously prescribed home medications to the be st of my knowledge. FOLLOWUP: Will be with Dr. So, as well as the patient's primary care physician. I have spent greater than 35 minutes in the care, coordination, and management of this patient's dis position. /[id number]/MODL
== END 2016-10-28 12:25 | DRG 482 ==
LOC: OBSVTOIN 16:43 → F3N 21:46
PROVIDERS: ADMIT Orthopaedic Surgery; ATTEND Hospitalist
PROC: 0QSB04Z Reposition Right Lower Femur with Internal Fixation Device, Open Approach (ICD-10-PCS; principal; 2016-10-25 17:30)
DX: M97.01XA Periprosthetic fracture around internal prosthetic right hip joint, initial encounter (principal); S01.01XA Laceration without foreign body of scalp, initial encounter; D64.9 Anemia, unspecified; I95.9 Hypotension, unspecified; W17.89XA Other fall from one level to another, initial encounter; Y92.511 Restaurant or cafe as the place of occurrence of the external cause; G47.33 Obstructive sleep apnea (adult) (pediatric); J84.10 Pulmonary fibrosis, unspecified; J44.9 Chronic obstructive pulmonary disease, unspecified; Z96.653 Presence of artificial knee joint, bilateral; Z96.641 Presence of right artificial hip joint; Z79.01 Long term (current) use of anticoagulants
CPT/HCPCS: 96374; 97116-GP; 97161-GP; 97165-GO; 97530-GP; 97535-GO; C1713; C1769; G8978-GP-CK; G8979-GP-CI; G8987-GO-CK; G8988-GO-CJ; G8989-GO-CJ; J0690; J1170; J1885; J2250; J2405; J2704; J2765; J3010